=== PATIENT | female | born 1995 | race Two or more races ===

== ENCOUNTER 2022-08-06 16:31 | Emergency (ER) | payer OTHER ==
[~2022-08-06] VITALS: Ht 162.6 cm; Wt 65.8 kg
[2022-08-06 16:50] VITALS: BP 102/61
[2022-08-06] MEDS ORDERED: TDAP [DIPH/PERTUSSIS/TET] 0.5 ML VIAL IM ONE ×2 (17:00→17:03)
== END 2022-08-06 18:04 | disposition home or self-care (01) ==
LOC: ER 16:36
DX: M79.671 Pain in right foot (principal)
CPT/HCPCS: 73630-TC; 90715